=== PATIENT | male | born 1960 | race Caucasian/White ===

== ENCOUNTER 2017-02-06 18:57 | Emergency (ER) | payer OTHER ==
[2017-02-06] MEDS ORDERED: NORMAL SALINE 1,000 ML IV ONE (20:37)
[2017-02-06] MEDS ORDERED: METHYLPREDNISOLONE SOD SUCC/PF 125 MG/2 ML VIAL IV ONE (20:37)
[2017-02-06] MEDS ORDERED: SUMAtriptan SUCCINATE 6 MG/0.5 ML VIAL SC ONE ×2 (20:39→20:52)
--- NOTE | 2017-02-06 20:40 | ERNOTE ---
Headache ER HPI - General Presenting Symptoms: headache Time Seen by Provider: 02/06/17 20:24 Source: patient Exam Limitations: no limitations - Immun/Allergies/Home Medications Immunizations: IMMUNIZATION HX Immunizations Up to Date Yes History of Influenza Vaccine Yes Hx Pneumococcal Vaccination No Allergies/Adverse Reactions: Allergies No Known Allergies Allergy (Verified 06/01/16 10:35) Home Medications: HOME MEDICATIONS Atorvastatin Calcium [Lipitor] 20 mg PO DAILY 02/06/17 [Last Taken Unknown] Lisinopril [Zestril] 10 mg PO DAILY 02/06/17 [Last Taken Unknown] metFORMIN HCL [Metformin HCl ER] 500 mg PO DAILY 02/06/17 [Last Taken Unknown] - Pain Pain Score: 7 - History of Present Illness Narrative: Pt had gradual onset of right sided headache 2 days ago. He has tried 400 mg ibuprofen x 3 with no results. Timing of Headache: gradual Context Headache: Present: new onset Quality: Present: achy Severity Maximum: Present: severe Severity-Currently: Present: severe Headache frequency: Present: occasional headaches Modifying Factors - (Improves): Denies: medication Associated Symptoms: Denies: nausea, vomiting, vision changes Review of Systems - Review of Systems Constitutional: Present: chills. Absent: recent illness, fever EYE: Absent: eye pain, vision changes ENT: Absent: nose congestion, nasal drainage Respiratory: Absent: shortness of breath, cough Cardiology: Absent: chest pain, palpitations Gastrointestinal/Abdominal: Present: nausea Genitourinary: Present: no symptoms reported Musculoskeletal: Present: muscle stiffness, neck pain Skin: Present: rash - after mushroom hunting 2 weeks ago given steroid Neurological: Present: See HPI. Absent: dizziness/light-headedness Endocrine: Present: no symptoms reported Hematologic/Lymphatic: Present: no symptoms reported Psych: Present: no symptoms reported - Patient's Past Medical History Patient History - Medical: Diabetes Type 2 Patient History - Cardiac/Respiratory: Hypertension, Hyperlipidemia Patient History - Cancer: No Hx of Cancer Patient History - Surgical Procedures: Other Patient History - Other: None - Family History Mother Family History - Medical: Family History - Cardiac/Respiratory: Coronary Heart Disease Father Family History - Medical: Family History - Cardiac/Respiratory: Coronary Heart Disease - Social History Living Situations: home Abuse History: No History of abuse Psych History: No pertinent hx Does anyone smoke in the home?: Yes Smoking Status: Current every day smoker Have you smoked in the past 12 months: Yes Alcohol Use: occasionally Drug Use: none - Immunizations Immunizations Up to Date: Yes Hx Pneumococcal Vaccination: No History of Influenza Vaccine: Yes Physical Exam - Physical Exam General Appearance: Present: wd/wn, alert, no apparent distress Eye Exam: EOMI: bilateral, Abnormal pupil: bilateral - pinpoint in a dark room Ears, Nose, Throat: Present: normal pharynx Neck: Present: normal inspection, nontender Respiratory: Present: no respiratory distress, normal breath sounds, no accessory muscle use Cardiovascular/Chest: Present: regular rate, rhythm, no murmur, normal peripheral pulses Back Exam: Present: normal inspection, normal range of motion, no vertebral tenderness Extremity Exam: Present: normal inspection, normal range of motion, no edema Neurological Exam: Present: alert, oriented, normal mood/affect, no motor/ sensory deficits Skin Exam: Present: normal color, warm/dry ED Progress - Results and Orders Patient's Lab Results:: I have reviewed the patient's lab results. Results and Orders: Laboratory Tests 02/06/17 20:55 WBC 10.5 Hgb 16.1 Hct 45.7 Plt Count 252 - Vital Signs Patient's Vital Signs:: I have reviewed the patient's vital signs. 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
--- OUTSIDE RECORDS SUMMARY | 2017-02-06 20:45 | XMS REPORT | Continuity of Care Document ---
:1960 Author Organization [facility] [place] [address] Care Team Providers Name Role Phone Adina Morley Jesus Primary Care Provider [phone] Source Comments This disclosure is being made pursuant to the [employer] program and contain all information available regarding this patient.[facility] Active Allergies and Adverse Reactions No Known Allergies Current Medications Be aware that medications may not be up to date as of this document. Alwaysverify current medications with the patient. Prescription Sig. Disp. Refills Start Date End Date Status atorvastatin TK 1 T PO QD 3 01/05/2017 Active (LIPITOR) 10 MG tablet FLUoxetine (PROZAC) TK 1 C PO QD IN 0 12/01/2016 Active 20 MG capsule THE MORNING lisinopril TK 1 T PO QD 3 01/05/2017 Active (PRINIVIL,ZESTRIL) 10 MG tablet metFORMIN XR TK 2 TS PO QD 3 12/22/2016 Active (GLUCOPHAGE-XR) 500 WITH THE LUIS MEAL MG 24 hr tablet traZODone (DESYREL) TK 1 T PO HS 2 12/23/2016 Active 50 MG tablet triamcinolone Apply topically 45 g 1 01/09/2017 Active (KENALOG) 0.1 % cream 2 (two) times daily as needed. to affected area. predniSONE Take 1 tablet by 5 tablet 0 01/09/2017 01/14/2017 (DELTASONE) 20 MG mouth daily. 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 eczema due to plant (Primary Dx) Social History Tobacco Use Types Packs/Day Years Used Date Current Every Day Smoker 0.5 Smokeless Tobacco: Never Used Alcohol Use Drinks/Week oz/Week Comments No Last Filed Vital Signs Vital Sign Reading Time Taken Blood Pressure 142/84 01/09/2017 6:21 PM CDT Pulse 82 01/09/2017 6:21 PM CDT Temperature 36.8 C (98.2 F) 01/09/2017 6:21 PM CDT Respiratory Rate 16 01/09/2017 6:21 PM CDT Height 1.753 m (5' 9") 01/09/2017 6:21 PM CDT Weight 81.647 kg (180 lb) 01/09/2017 6:21 PM CDT Body Mass Index 26.57 01/09/2017 6:21 PM CDT Oxygen Saturation 98% 01/09/2017 6:21 PM CDT Plan of Care Health Maintenance Due Date Last Done Comments Hepatitis C Screening 1978 Pneumococcal Medium Risk 19-64 yo (1 of 1 - PPSV23) 1979 Tetanus/Pertussis (1 - Tdap) 1979 Colonoscopy 2010 Well Adult Visit 2010 Influenza Immunization (#1) 2016 Results from Last 3 Months Not on file
--- OUTSIDE RECORDS SUMMARY | 2017-02-06 20:45 | XMS REPORT | Continuity of Care Document ---
:1960 Author Organization [facility] ([facility]) Address [address] [place] [address] Phone [phone] Care Team Providers Name Role Phone Elizabeth Clarke Primary Care Provider [phone] Source Comments This disclosure is being made pursuant to the Care Everywhere program, applicable federal and state laws, and may not contain all informaitonavailable regarding this patient.[facility] ([facility]) Active Allergies and Adverse Reactions No Known Allergies Current Medications Prescription Sig. Disp. Refills Start Date End Date Status SUPPLY FREESTYLE by In Vitro route 2 times 150 Strip 5 10/17/2012 Active LITE test strips daily. Non-Insulin Dependent Indications: TYPE 2 DIABETES MELLITUS SUPPLY FREESTYLE by In Vitro route 2 times 1 Each 0 10/17/2012 Active LITE meter daily. Indications: TYPE 2 DIABETES MELLITUS SUPPLY FREESTYLE by Miscellaneous route 2 200 Each 5 12/04/2012 Active lancets times daily. Non-Insulin Dependent Indications: TYPE 2 DIABETES MELLITUS tamsulosin 0.4 mg Take 1 Cap by mouth 30 Cap 11 07/23/2013 Active ER capsule daily. Indications: BENIGN PROSTATIC HYPERTROPHY ibuprofen 800 mg Take 1 Tab by mouth 30 Tab 0 03/14/2014 Active tablet daily. Indications: PAIN atorvastatin 40 Take 1 Tab by mouth every 90 Tab 6 04/11/2014 Active mg tablet evening. Indications: HYPERCHOLESTEROLEMIA lisinopril 2.5 mg Take 1 Tab by mouth 90 Tab 6 04/11/2014 Active tablet daily. Indications: Diabetic, elevated BP metFORMIN 500 mg Take 1 Tab by mouth 2 90 Tab 6 04/11/2014 Active tablet times daily with meals. Indications: TYPE 2 DIABETES MELLITUS Active Problems Problem Noted Date Elevated PSA 03/14/2014 Erectile dysfunction 03/14/2014 Hypertension 06/17/2013 SNHL (sensorineural hearing loss) 05/23/2013 Tinnitus, subjective 05/23/2013 Myopia with astigmatism and presbyopia 01/16/2013 Diabetes mellitus 10/17/2012 Hyperlipidemia LDL goal < 70 10/17/2012 Tobacco use 10/17/2012 Resolved Problems Problem Noted Date Resolved Date Dysuria 01/09/2013 06/17/2013 Enlarged lymph node 01/09/2013 06/17/2013 Knee pain, bilateral 01/09/2013 06/17/2013 Elevated BP 10/17/2012 06/17/2013 Abdominal discomfort, epigastric 10/17/2012 06/17/2013 Immunizations Name Dates Previously Given Next Due Tdap 02/16/2010 Social History Tobacco Use Types Packs/Day Years Used Date Current Every Day Smoker Cigarettes 0.5 39 Smokeless Tobacco: Never Used Tobacco Cessation:Counseling Given: Yes Comments: Alcohol Use Drinks/Week oz/Week Comments Yes 2 Cans of beer 12 pack of beer a month. Last Filed Vital Signs Vital Sign Reading Time Taken Blood Pressure 100/64 03/14/2014 10:01 AM CDT Pulse 80 03/14/2014 10:01 AM CDT Temperature 36.8 C (98.2 F) 03/14/2014 10:01 AM CDT Respiratory Rate 16 03/14/2014 10:01 AM CDT Height 1.803 m (5' 11") 05/23/2013 9:42 AM CDT Weight 78.245 kg (172 lb 8 oz) 03/14/2014 10:01 AM CDT Body Mass Index 24.07 03/14/2014 10:01 AM CDT Oxygen Saturation - - Plan of Care Patient Goal Type Goal Blood Pressure Blood Pressure below 130/80 Result Component % HBA1C below 7.0 LDLC below 100 Health Maintenance Due Date Last Done Comments Hepatitis B Vaccine (1 of 3 - 1960 Primary Series) MMR Vaccine 1978 Pneumococcal Vaccine (1 of 1 1979 - PPSV23) Colonoscopy 2010 FOBT Colon Cancer Screening 2010 Sigmoidoscopy Colon Cancer 2010 Screening DIABETIC: Retinal Eye Exam 01/16/2014 01/16/2013, 01/16/2013 Prostate Cancer Screening 07/23/2014 07/23/2013, 01/28/2013, 01/09/2013 DIABETIC: Hemoglobin A1C 09/13/2014 03/14/2014, Additional history exists 06/17/2013, 01/09/2013 DIABETIC: Cholesterol 03/14/2015 03/14/2014, 06/17/2013, 10/17/2012 DIABETIC: Foot Exam 03/14/2015 03/14/2014, Additional history exists 03/14/2014, 01/09/2013 Diabetic: Hdl 03/14/2015 03/14/2014, 06/17/2013, 10/17/2012 Diabetic: Ldl 03/14/2015 03/14/2014, 06/17/2013, 10/17/2012 DIABETIC: Microalbumin 03/14/2015 03/14/2014, Additional history exists 06/17/2013, 01/09/2013 DIABETIC: Triglycerides 03/14/2015 03/14/2014, 06/17/2013, 10/17/2012 Influenza Vaccine: Seasonal 04/18/2016 (#1) Td Vaccine 02/17/2020 02/16/2010 Tdap Vaccine Addressed 04/16/2012, Overridden with the 02/16/2010 intention of not completing the topic HCV Screening Completed 06/17/2013 Results from Last 3 Months Not on file
[2017-02-06] MEDS ORDERED: METHYLPREDNISOLONE SOD SUCC/PF 125 MG/2 ML VIAL ONE (20:52)
[2017-02-06 21:13] LABS: Hematocrit 45.7 % (42.0-52.0); Hemoglobin 16.1 gm/dL (13.5-18.0); Mean Corpuscular Hemoglobin 33.1 pg (27-31); Mean Corpuscular Hgb Conc 35.2 g/dl (32-36); Mean Platelet Volume 10.3 fl (6.0-9.5); Neutrophil # 6.8 K/mm3 (1.3-6.0); Neutrophil % 64.3 % (42-75.0); Platelet Count 252 K/mm3 (150-450); Red Blood Count 4.86 M/mm3 (4.7-6.0); Red Cell Distribution Width 12.9 % (11.5-14.0); White Blood Count 10.5 K/mm3 (4.0-10.5)
[2017-02-06 22:14] VITALS: BP 132/72
== END 2017-02-06 22:10 | disposition home or self-care (01) ==
LOC: ER 18:57
DX: G43.009 Migraine without aura, not intractable, without status migrainosus (principal); E11.9 Type 2 diabetes mellitus without complications; I10 Essential (primary) hypertension; E78.5 Hyperlipidemia, unspecified